=== PATIENT | male | born 1995 | race Caucasian/White ===

== ENCOUNTER 2019-03-25 13:33 | Emergency (ER) | payer MEDICAID ==
[2019-03-25] MEDS: KETOROLAC 30 MG INJ IM (13:48)
== END 2019-03-25 15:48 | disposition home or self-care (01) ==
LOC: E/R 13:33
DX: S40.212A Abrasion of left shoulder, initial encounter (principal); M25.512 Pain in left shoulder; V43.52XA Car driver injured in collision with other type car in traffic accident, initial encounter
CPT/HCPCS: 71045; 72040; 73000; 73030; 96372; 99284-25